=== PATIENT | female | born 1990 | race Caucasian/White ===

== ENCOUNTER 2024-10-05 23:14 | Emergency (ER) | payer OTHER ==
[2024-10-05 23:25] VITALS: PULSE 110; O2SAT 99
== END 2024-10-05 23:47 | disposition left against medical advice (07) ==
LOC: ER 23:14
DX: R50.9 Fever, unspecified (principal); R11.10 Vomiting, unspecified; Z53.21 Procedure and treatment not carried out due to patient leaving prior to being seen by health care provider